=== PATIENT | male | born 1945 | race Caucasian/White ===

== ENCOUNTER 2023-07-10 23:30 | Outpatient (CLI) | payer MEDICARE, SELFPAY | END 2023-07-10 23:31 | disposition home or self-care (01) | LOC: AMB 07-17 16:37 | PROVIDERS: PCP Family Medicine; Visit Provider Family Medicine | DX: R51.9 Headache, unspecified (principal); R47.81 Slurred speech | CPT/HCPCS: A0425; A0427 ==